=== PATIENT | male | born 1965 | race Caucasian/White ===

== ENCOUNTER → 2017-06-30 | Outpatient (CLI) | payer BC | LOC: BHSO 10:37 | DX: F43.10 Post-traumatic stress disorder, unspecified (principal) ==

== ENCOUNTER → 2017-08-21 | Outpatient (CLI) | payer BC | LOC: BHSO 08:37 | DX: F43.10 Post-traumatic stress disorder, unspecified (principal) | CPT/HCPCS: G0463 ==

== ENCOUNTER → 2017-10-06 | Outpatient (CLI) | payer BC | LOC: BHSO 10:49 | DX: F43.10 Post-traumatic stress disorder, unspecified (principal) | CPT/HCPCS: G0463 ==

== ENCOUNTER → 2018-01-05 | Outpatient (CLI) | payer BC | LOC: BHSO 10:38 | DX: F43.10 Post-traumatic stress disorder, unspecified (principal) | CPT/HCPCS: G0463 ==

== ENCOUNTER → 2018-05-02 | Outpatient (CLI) | payer BC | LOC: BHSO 14:29 | DX: F43.10 Post-traumatic stress disorder, unspecified (principal) | CPT/HCPCS: G0463 ==